=== PATIENT | female | born 1960 | race Caucasian/White ===

== ENCOUNTER 2019-12-17 06:04 | Day surgery (SDC) | payer OTHER ==
[~2019-12-17] VITALS: Ht 165.1 cm; Wt 67.5 kg
[2019-12-17] MEDS ORDERED: GABA300 PO (06:49)
[2019-12-17] MEDS ORDERED: ASPI81CH PO (06:50)
--- NOTE | 2019-12-17 07:16 | NUR ---
NECKLACE REMOVED AND PLACED IN BAG WITH PATIENT LABEL ON IT AND PLACED IN PATIENTS PURSE.
--- NOTE | 2019-12-17 09:40 | NUR ---
Discharge instructions reviewed with patient. Patient verbalizes understanding. Copy given to patient to take home. Patient up to Ambulate independently. Gait steady. Discharged via wheelchair to private car for ride home WITH FRIEND
== END 2019-12-17 23:10 | disposition home or self-care (01) ==
LOC: ORSCMMR 06:04 → ORD 07:30 → ORSCMMR 23:10
PROVIDERS: Surgery
PROC: 0JBF0ZZ Excision of Left Upper Arm Subcutaneous Tissue and Fascia, Open Approach (ICD-10-PCS; principal; 2019-12-17 07:30)
DX: R22.32 Localized swelling, mass and lump, left upper limb (principal); Z87.891 Personal history of nicotine dependence; Z79.899 Other long term (current) drug therapy
CPT/HCPCS: 88304; J0690; J1100; J2405; J2704; J3010; J7120

== ENCOUNTER 2020-07-25 14:15 | Emergency (ER) | payer OTHER ==
[~2020-07-25] VITALS: Ht 165.1 cm; Wt 66.2 kg
[~2020-07-25 14:15] MED LIST: ASPI81CH PO; GABA300 PO
== END 2020-07-25 16:01 | disposition home or self-care (01) ==
LOC: ER 14:15
DX: S81.811A Laceration without foreign body, right lower leg, initial encounter (principal); Z79.82 Long term (current) use of aspirin; W27.0XXA Contact with workbench tool, initial encounter; Y93.H2 Activity, gardening and landscaping
CPT/HCPCS: 12001; 99282

== ENCOUNTER → 2022-04-23 | Outpatient (CLI) | payer OTHER ==
[~2022-04-23] MED LIST changes: +HYDCHL25 PO
[2022-04-25 15:12] LABS: HPV 16 Negative (Negative); HPV 18 Negative (Negative); HPV OTHER HR TYPES Negative (Negative)
== END | disposition home or self-care (01) ==
LOC: LAB SHORT 09:45 → LAB 09:45
PROVIDERS: Nurse Practitioner Family
DX: Z12.4 Encounter for screening for malignant neoplasm of cervix (principal)
CPT/HCPCS: 87624; G0145

== ENCOUNTER 2022-07-16 07:14 | Day surgery (SDC) | payer OTHER ==
[~2022-07-16] VITALS: Ht 165.1 cm; Wt 61.9 kg
[~2022-07-16 07:14] MED LIST changes: +QVAR REDIHALE10.6 G2 IH
[2022-07-16 09:14] VITALS: BP 123/80
== END 2022-07-16 09:09 | disposition home or self-care (01) ==
LOC: ORSCSDS 07:14
PROVIDERS: Student in an Organized Health Care Education/Training Program
PROC: 08DK3ZZ Extraction of Left Lens, Percutaneous Approach (ICD-10-PCS; principal; 2022-07-16 08:30)
DX: H25.13 Age-related nuclear cataract, bilateral (principal); H35.372 Puckering of macula, left eye; I10 Essential (primary) hypertension; G62.9 Polyneuropathy, unspecified; I73.9 Peripheral vascular disease, unspecified; Z79.899 Other long term (current) drug therapy
CPT/HCPCS: J2001; J2250; J3010; J7040; V2632

== ENCOUNTER 2022-12-30 17:43 | Emergency (ER) | payer OTHER ==
[~2022-12-30] VITALS: Ht 165.1 cm; Wt 63.5 kg
[2022-12-30 18:34] LABS: BASOPHILS ABSOLUTE AUTO 0.04 K/mm3 (0.00-0.23); BASOPHILS PERCENT AUTO 1 % (0-2); EOSINOPHILS PERCENT AUTO 4 % (0-6); Hematocrit 41.5 % (33.0-51.0); Hemoglobin 13.4 g/dL (11.5-16.0); IMMATURE GRAN ABSOLUTE AUTO 0.01 K/mm3 (0.00-0.10); IMMATURE GRAN PERCENT AUTO 0 % (0-1); LYMPHOCYTES ABSOLUTE AUTO 1.35 K/mm3 (0.84-5.20); LYMPHOCYTES PERCENT AUTO 24 % (21-46); MONOCYTES ABSOLUTE AUTO 0.52 K/mm3 (0.16-1.47); MONOCYTES PERCENT AUTO 9 % (4-13); Mean Corpuscular HGB 29.1 pg (26.0-34.0); Mean Corpuscular HGB Conc 32.3 g/dL (31.5-36.5); Mean Corpuscular Volume 90 fL (80-100); Mean Platelet Volume 8.8 fL (9.1-12.4); NEUTROPHILS PERCENT AUTO 63 % (41-73); Platelet Count 244 K/mm3 (150-400); RDW Coefficient Variation 13.5 % (11.7-14.2); RDW Standard Deviation 44.5 fL (35.1-46.3); Red Blood Cell Count 4.61 M/mm3 (3.80-5.20); White Blood Cell Count 5.72 K/mm3 (4.00-11.30)
[2022-12-30 19:07] LABS: Albumin, Blood 3.5 g/dL (3.4-5.0); Albumin/Globulin Ratio 0.9 (0.8-1.8); Bilirubin, Total 0.3 mg/dL (0.1-1.0); Bun/Creatinine Ratio 22.3 (12.0-20.0); Calcium, Blood 9.7 mg/dL (8.5-10.1); Creatinine, Blood 1.21 mg/dL (0.40-1.00); Potassium, Blood 4.3 mmol/L (3.5-5.5); Total Protein, Blood 7.5 g/dL (6.4-8.2)
[2022-12-30] MEDS ORDERED: LOSA25 PO (20:30)
[2022-12-30 21:15] VITALS: BP 128/80
== END 2022-12-30 21:31 | disposition home or self-care (01) ==
LOC: ER 17:43
PROVIDERS: Physician Assistant
DX: R07.9 Chest pain, unspecified (principal); R53.1 Weakness; R53.81 Other malaise; I71.21 Aneurysm of the ascending aorta, without rupture; E04.1 Nontoxic single thyroid nodule; R91.1 Solitary pulmonary nodule; Z88.5 Allergy status to narcotic agent; Z79.899 Other long term (current) drug therapy; Z85.048 Personal history of other malignant neoplasm of rectum, rectosigmoid junction, and anus
CPT/HCPCS: 71275; 80053; 84484; 85025; 93005; 93010; 99285-25; Q9967

== ENCOUNTER → 2023-11-03 | Outpatient (CLI) | payer OTHER ==
[~2023-11-03] MED LIST changes: +LOSA25 PO
[2023-11-03 21:56] LABS: Microalb/Creat Ratio UR, Rand 40.37 mg/g (0.000-30.000); Microalbumin, Random Urine 10.9 mg/L (0.000-20.000)
== END | disposition home or self-care (01) ==
LOC: LAB 08:15 → LAB SHORT 08:15
PROVIDERS: Internal Medicine Endocrinology, Diabetes & Metabolism
DX: N18.31 Chronic kidney disease, stage 3a (principal)
CPT/HCPCS: 82043; 82310; 82570